=== PATIENT | female | born 1950 | race Caucasian/White ===

== ENCOUNTER → 2023-07-04 11:26 | Outpatient (REF) | payer MEDICARE, OTHER, SELFPAY | LOC: MRI 11:26 | PROVIDERS: ATTENDING PHYSICIAN Orthopaedic Surgery; FAMILY PHYSICIAN Internal Medicine | DX: M43.16 Spondylolisthesis, lumbar region (principal); M46.1 Sacroiliitis, not elsewhere classified; Z98.1 Arthrodesis status | CPT/HCPCS: 72148 ==

== ENCOUNTER → 2023-11-22 11:59 | Outpatient (REF) | payer MEDICARE, OTHER, SELFPAY | LOC: SDS 11:59 | PROVIDERS: ATTENDING PHYSICIAN Internal Medicine; FAMILY PHYSICIAN Internal Medicine | DX: K83.8 Other specified diseases of biliary tract (principal); K76.89 Other specified diseases of liver; R10.11 Right upper quadrant pain | CPT/HCPCS: 74181 ==

== ENCOUNTER 2023-12-11 06:19 | Day surgery (SDC) | payer MEDICARE, OTHER, SELFPAY ==
[2023-12-11 08:42] VITALS: BMI 29.2
[2023-12-11 08:44] VITALS: BMI 29.2
[2023-12-11 08:45] VITALS: BP 135/74
[2023-12-11 11:00] VITALS: BP 135/63
[2023-12-11 11:15] VITALS: BP 131/75
== END 2023-12-11 11:38 | disposition home or self-care (01) ==
LOC: GI 06:19
PROVIDERS: ATTENDING PHYSICIAN Internal Medicine Gastroenterology
DX: K83.8 Other specified diseases of biliary tract (principal); K86.89 Other specified diseases of pancreas; R93.3 Abnormal findings on diagnostic imaging of other parts of digestive tract
CPT/HCPCS: 43237